=== PATIENT | female | born 1970 | race Caucasian/White ===

== ENCOUNTER → 2018-06-08 13:43 | Outpatient (CLI) | payer OTHER, SELFPAY ==
--- NOTE | 2018-06-08 | DI.US.S_ITS ---
LIMITED ULTRASOUND OF RIGHT BREAST: 06/08/2018 CLINICAL: Focal right breast pain. Comparison is made to exam dated: 06/08/2018 [facility]. Ultrasound of the right breast 10 o'clock region was performed. No abnormalities were seen sonographically in the right breast. IMPRESSION: NEGATIVE There is no sonographic evidence of malignancy. Return to annual mammogram screening schedule is recommended. The patient should follow up with her primary care doctor for worsening symptoms. Findings and recommendations were conveyed to the patient. This exam was interpreted at Station ID: [id number]. Electronically Signed By: Georgina lucio/:06/08/2018 16:24:10 letter sent: Normal Exam Ultrasound BI-RADS: 1 Negative
--- NOTE | 2018-06-08 | DI.MG.S_ITS ---
BILATERAL DIGITAL DIAGNOSTIC MAMMOGRAM 3D/2D: 06/08/2018 CLINICAL: Right breast Pain. No prior exams were available for comparison. The tissue of both breasts is heterogeneously dense. This may lower the sensitivity of mammography. No mammographic findings in the lateral right breast- patient's area of pain. No significant masses, calcifications, or other findings are seen in either breast. IMPRESSION: INCOMPLETE: NEEDS ADDITIONAL IMAGING EVALUATION No mammographic evidence of malignancy or finding to explain right breast pain. Further evaluation with ultrasound is recommended and was performed immediately following this exam. This exam was interpreted at Station ID: [id number]. NOTE: For mammograms, a report in lay terms will be sent to the patient. Approximately 15% of breast malignancies will not be visualized mammographically. In the management of a palpable breast mass, a negative mammogram must not discourage biopsy of a clinically suspicious lesion. Electronically Signed By: Georgina lucio/:06/08/2018 16:21:45 ACR BI-RADS Category 0: Incomplete [id number]
== END ==
PROVIDERS: PCP Physician Assistant; Visit Provider Physician Assistant
DX: R92.8 Other abnormal and inconclusive findings on diagnostic imaging of breast (principal); N64.4 Mastodynia
CPT/HCPCS: 76642; 77066; G0279

== ENCOUNTER → 2020-11-18 16:12 | Outpatient (CLI) | payer OTHER, SELFPAY ==
--- NOTE | 2020-11-18 | DI.MG.S_ITS ---
BILATERAL DIGITAL SCREENING MAMMOGRAM 3D/2D WITH CAD: 11/18/2020 CLINICAL: Routine screening. Comparison is made to exams dated: 06/08/2018 ultrasound and 06/08/2018 mammogram - [facility]. The tissue of both breasts is heterogeneously dense. This may lower the sensitivity of mammography. Current study was also evaluated with a Computer Aided Detection (CAD) system. There is a mole marker on the right breast. No significant masses, calcifications, or other findings are seen in either breast. There has been no significant interval change. IMPRESSION: NEGATIVE There is no mammographic evidence of malignancy. A 1 year screening mammogram is recommended. This exam was interpreted at Station ID: [id number]. NOTE: For mammograms, a report in lay terms will be sent to the patient. Approximately 15% of breast malignancies will not be visualized mammographically. In the management of a palpable breast mass, a negative mammogram must not discourage biopsy of a clinically suspicious lesion. Electronically Signed By: Franco Mayorga [email or web address]:11/18/2020 17:46:10 letter sent: Normal Exam ACR BI-RADS Category 1: Negative [id number]
== END ==
PROVIDERS: PCP Physician Assistant; Referring Provider Physician Assistant; Visit Provider Physician Assistant
DX: Z12.31 Encounter for screening mammogram for malignant neoplasm of breast (principal)
CPT/HCPCS: 77063; 77067